=== PATIENT | female | born 1950 | race Caucasian/White ===

== ENCOUNTER 2018-10-24 07:20 | Inpatient (IN) | payer MEDICARE, MEDICAID ==
[2018-10-23 17:00] LABS: CLARITY,URINE CLOUDY (Clear); COLOR,URINE YELLOW (Yellow); GLUCOSE, URINE >=1000 mg/dl (Neg); KETONES,URINE NEGATIVE (Neg); LEUKOCYTE ESTERASE ,URINE TRACE (Neg); NITRITES, URINE NEGATIVE (Neg); OCCULT BLOOD,URINE SMALL (Neg); PH,URINE 5.5 (4.8-8.0); PROTEIN,URINE NEGATIVE (Neg); UROBILINOGEN,URINE 0.2 E.U/dL (0.2-1.0)
[2018-10-23 17:07] LABS: BASOPHILS # (AUTO) 0.1 X10'3 (0-0.2); BASOPHILS % (AUTO) 0.9 % (0-1); EOSINOPHILS # (AUTO) 0.2 X10'3 (0-0.9); EOSINOPHILS % (AUTO) 1.9 % (0-6); LYMPHOCYTES # (AUTO) 2.6 X10'3 (1.1-4.8); LYMPHOCYTES % (AUTO) 26.6 % (21-51); MEAN CORPUSCULAR HEMOGLOBIN 31.3 PG (27.0-31.0); MEAN CORPUSCULAR HGB CONC 34.8 g/dL (33.0-36.5); MEAN CORPUSCULAR VOLUME 90.1 FL (78-98); MEAN PLATELET VOLUME 10.3 FL (7.4-10.4); MONOCYTES # (AUTO) 0.8 X10'3 (0-0.9); MONOCYTES % (AUTO) 8.6 % (2-12); NEUTROPHILS # (AUTO) 6.2 X10'3 (1.8-7.7); PRE OP HEMATOCRIT 39.6 % (35.0-45.0); PRE OP HEMOGLOBIN 13.8 g/dL (12.0-16.0); PRE OP PLATELET COUNT 253 X10'3 (140-440); RED BLOOD COUNT 4.39 X10'6 (4.20-5.60); RED CELL DISTRIBUTION WIDTH 13.6 % (11.5-14.5)
[2018-10-23 17:10] LABS: UA COLLECTION TYPE CLN CATCH MIDSTREAM
[2018-10-23 17:11] LABS: SQUAMOUS EPITHELIAL CELL,UR FEW /LPF (FEW)
[2018-10-23 17:12] LABS: BACTERIA,URINE 4+ /HPF (Neg); RENAL CELLS, URINE FEW /HPF
[2018-10-23 17:16] LABS: ALBUMIN 3.1 G/DL (3.4-5.0); ALBUMIN/GLOBULIN RATIO 0.6 (1.1-1.5); ALKALINE PHOSPHATASE 181 IU/L (46-116); BLOOD UREA NITROGEN 22 MG/DL (7-18); BUN/CREATININE RATIO 16.5 (6.6-38.0); CHLORIDE 100 MMOL/L (99-107); CREATININE 1.33 MG/DL (0.40-0.90); PRE OP ALT 64 U/L (30-65); PRE OP ANION GAP 6 (8-16); PRE OP AST 30 U/L (10-37); PRE OP BILIRUB, TOTAL 0.2 MG/DL (0.0-1.0); PRE OP POTASSIUM 3.6 MMOL/L (3.4-5.1); PRE OP SODIUM 138 MMOL/L (135-145); TOTAL CARBON DIOXIDE 31.8 MMOL/L (24-32); TOTAL PROTEIN 7.9 G/DL (6.4-8.2); eGFR 40 ML/MIN
[2018-10-23 17:21] LABS: PRE OP GLUCOSE 357 MG/DL (70-104)
[2018-10-23 17:22] LABS: PRE OP INR 1.1 INR; PRE OP PROTIME 10.7 SECONDS (9.0-12.0)
[2018-10-23 17:39] LABS: HEMOGLOBIN A1C 10.1 % (4.5-6.2)
[2018-10-24] VITALS (12 sets, daily range): BP systolic 130–180; BP diastolic 45–81
[~2018-10-24] VITALS: Ht 157.5 cm; Wt 93.0 kg
[~2018-10-24 07:20] MED LIST: ALBU18HF2 INH; AMLO-314 PO; CBD OIL PO; CLOP75TA15 PO; FURO40TA4 PO; GABA-532 PO; INSU100V41 SQ; LINA5TAB4 PO; LISI10TA4 PO; METF-436 PO; MV-M1TAB55 PO; RIVA20TA PO; albuterol 2.5 MG/3 ML nebule NEB ONE; famotidine 20mg tablet PO ONE; ringers solution, lacted 1,000 ML IV SCH
--- NOTE | 2018-10-24 07:50 | NUR ---
Patient arrived as direct admit, patient of Dr. Curiel. VSS. No further needs at this time. To have angio around 0930 this am.
[2018-10-24] MEDS: ringers solution, lacted 1,000 ML IV SCH (07:55)
--- NOTE | 2018-10-24 08:04 | NUR ---
Spoke to Elissa in Angio they will hopefully be up around 0930 for scan
[2018-10-24] MEDS ORDERED: iohexol 300mg/ml 100ml inj. ONE ×2 (09:09→11:35)
[2018-10-24] MEDS ORDERED: LIDOcaine 1%/PF 5ML 10 MG/ML VIAL ONE (09:09)
[2018-10-24] MEDS ORDERED: normal saline 1000ml 1,000 ML IV SCH (09:19)
[2018-10-24] MEDS ORDERED: LIDOcaine 1%/PF 5ML 10 MG/ML VIAL SQ ONE (09:20)
[2018-10-24] MEDS ORDERED: fentaNYL/PF 50MCG/1 ML 2ML syringe IV PRN (09:20)
[2018-10-24] MEDS ORDERED: midazolam 2 mg/2 ml injection IV PRN (09:20)
--- NOTE | 2018-10-24 09:20 | NUR ---
Called Dr. Curiel regarding this patient's blood glucose of 347-hyperglycemic/hypoglycemic protocol ordered. Addressed this patient's wound on top of her L foot with Dr. Moisés MD states he would like to examine before giving further orders for dressing the wound.
[2018-10-24] MEDS ORDERED: glucagon, human recombinant 1mg kit SUBCUT PRN (09:25)
[2018-10-24] MEDS ORDERED: dextrose 50%-water 50ml dispensing syringe IV PRN ×2 (09:25)
[2018-10-24] MEDS ORDERED: dextrose ORAL solution 15 GM/59 ML bottle PO PRN ×2 (09:25)
[2018-10-24] MEDS ORDERED: MESSAGE TO PHARMACY PO ONE (09:25)
--- NOTE | 2018-10-24 09:32 | NUR ---
Patient just left via gurney for angiogram, all belongings sent with patient.
[2018-10-24] MEDS ORDERED: midazolam 2 mg/2 ml injection ONE (09:41)
[2018-10-24] MEDS ORDERED: heparin 1,000 UNITS/NS 500ml 500 ML ONE ×2 (09:41→11:35)
[2018-10-24] MEDS ORDERED: fentaNYL/PF 50MCG/1 ML 2ML syringe ONE (09:41)
[2018-10-24] MEDS ORDERED: heparin 1,000unit/ml 10ml vial 10 ML ONE (10:50)
[2018-10-24] MEDS ORDERED: hydrALAZINE 20mg/ml inj. IV ONE (11:25)
[2018-10-24] MEDS ORDERED: cefazolin/dext.iso 2gm/100 ML IV ONE (11:30)
--- NOTE | 2018-10-24 12:37 | NUR ---
Patient returned from angiogram/angioplasty, doppler pulses present on bilateral LE, patient reports minimal pain, VSS. Post op vitals started. Will continue to monitor.
[2018-10-24 12:52] LABS: BASOPHILS # (AUTO) 0.1 X10'3 (0-0.2); BASOPHILS % (AUTO) 0.7 % (0-1); EOSINOPHILS # (AUTO) 0.2 X10'3 (0-0.9); EOSINOPHILS % (AUTO) 2.1 % (0-6); HEMATOCRIT 37.8 % (35.0-45.0); HEMOGLOBIN 12.8 g/dl (12.0-16.0); LYMPHOCYTES # (AUTO) 3.6 X10'3 (1.1-4.8); LYMPHOCYTES % (AUTO) 35.4 % (21-51); MEAN CORPUSCULAR HEMOGLOBIN 30.5 PG (27.0-31.0); MEAN CORPUSCULAR HGB CONC 33.8 g/dL (33.0-36.5); MEAN CORPUSCULAR VOLUME 90.3 FL (78-98); MEAN PLATELET VOLUME 10.1 FL (7.4-10.4); MONOCYTES % (AUTO) 10.1 % (2-12); NEUTROPHILS # (AUTO) 5.2 X10'3 (1.8-7.7); NEUTROPHILS % (AUTO) 51.7 % (42-75); PLATELET COUNT 214 X10'3 (140-440); RED BLOOD COUNT 4.19 X10'6 (4.20-5.60); RED CELL DISTRIBUTION WIDTH 13.9 % (11.5-14.5); WHITE BLOOD COUNT 10.1 X10'3 (4.5-11.0)
[2018-10-24] MEDS: insulin Lispro (HumaLOG) vial - multi-dose SQ SCH ×3 (13:07→21:42)
[2018-10-24 13:08] LABS: ALBUMIN 2.6 G/DL (3.4-5.0); ANION GAP 6 (8-16); BLOOD UREA NITROGEN 22 MG/DL (7-18); BUN/CREATININE RATIO 23.9 (6.6-38.0); CALCIUM 8.9 MG/DL (8.5-10.1); CHLORIDE 104 MMOL/L (99-107); CREATININE 0.92 MG/DL (0.40-0.90); GLUCOSE 320 MG/DL (70-104); POTASSIUM 3.9 MMOL/L (3.5-5.1); SODIUM 138 MMOL/L (135-145); TOTAL CARBON DIOXIDE 28.3 MMOL/L (24-32); eGFR 61 ML/MIN
[2018-10-24 16:10] LABS: HEMOGLOBIN A1C 9.7 % (4.5-6.2)
--- NOTE | 2018-10-24 18:31 | NUR ---
Problems reprioritized. Patient report given, questions answered & plan of care reviewed with ALEIDA Anderson.
--- NOTE | 2018-10-24 18:33 | NUR ---
Patient in room [facility] 355. I have received report from RICHARD SHIN and had the opportunity to ask questions and assume patient care. Addendum: 10/24/18 at 1833 by Monica Goldsmith RN Amended: Links added.
[2018-10-24] MEDS ORDERED: MESSAGE TO NURSING PO NR (18:39)
[2018-10-24] MEDS ORDERED: albuterol 2.5 MG/3 ML nebule NEB PRN (18:40)
--- NOTE | 2018-10-24 19:35 | NUR ---
pt given 15 units of humalog for 75 carbs she ate and her blood sugar of 248.
[2018-10-24] MEDS ORDERED: amLODIPine 5mg tablet PO SCH (21:00)
[2018-10-24] MEDS ORDERED: insulin glargine (Lantus) pen - multi-dose SQ SCH (21:00)
[2018-10-24] MEDS ORDERED: INSULIN DEGLUDEC 30 UNIT SQ SCH (21:00)
[2018-10-24] MEDS ORDERED: clopidogrel 75mg tablet PO SCH (21:00)
--- NOTE | 2018-10-24 21:10 | NUR ---
pt AWOKE BLOOD SUGAR 327 AT AND COVERED AFTER CHECKING WITH ANOTHER RN 3 HUMALOG AND 12 OF LANTUS. ATTEMPT TO DO DIABETIC TEACHING PT NOT RECEPTIVE. NOTED PULSES DONE BY DOPPLER BILAT.
--- NOTE | 2018-10-24 23:05 | NUR ---
pt resting eyes closed without changes.
[2018-10-25 00:11] VITALS: BP 137/47
[2018-10-25] MEDS: gabapentin 300mg capsule PO SCH ×3 (00:35→13:15)
--- NOTE | 2018-10-25 00:46 | NUR ---
awoke briefly per request given snack of string cheese.
--- NOTE | 2018-10-25 02:25 | NUR ---
resting eyes closed without changes.
[2018-10-25] MEDS: ringers solution, lacted 1,000 ML IV SCH ×2 (03:55→04:36)
--- NOTE | 2018-10-25 04:21 | NUR ---
resting eyes closed without s&s of distress.
--- NOTE | 2018-10-25 06:17 | NUR ---
Problems reprioritized. Patient report given, questions answered & plan of care reviewed with Brian Jiemnez. Addendum: 10/25/18 at 0618 by Monica Goldsmith RN Amended: Links added.
[2018-10-25 08:00] VITALS: BP 145/48
[2018-10-25] MEDS ORDERED: furosemide 40mg tablet PO SCH (08:00)
[2018-10-25] MEDS ORDERED: linagliptin 5mg tablet PO SCH (08:00)
[2018-10-25] MEDS ORDERED: multivitamins, therapeutics tablet PO SCH (08:00)
[2018-10-25] MEDS ORDERED: CBD OIL PO SCH (08:00)
[2018-10-25] MEDS ORDERED: rivaroxaban 20mg tablet PO SCH (08:00)
[2018-10-25] MEDS ORDERED: lisinopril 20mg tablet PO SCH (08:00)
[2018-10-25] MEDS: insulin Lispro (HumaLOG) vial - multi-dose SQ SCH ×2 (08:37→13:18)
[2018-10-25 12:00] VITALS: BP 146/59
--- NOTE | 2018-10-25 15:50 | NUR ---
DM Consult: A1C 9.7. Pt admit w/ PVD hx T2DM non-compliant w/ L foot non-healing wound and ischemia per MD note. Receiving MVI for wound healing. Pt PO 100% carb controlled meals meeting needs. LBM 10/23. GLU down to 202 from 347 on admit. Pt seen by RD for written/verbal DM ed w/ RD contact information provided. Pt reports recently starting insulin and was only on metformin in past for GLU control but also admits to inappropriate diet choices specifically frequent sweets instead of moderation. RD encouraged pt to attend CDE course, check GLU BIDBD instead of QD at breakfast as well as seeing an webbing inspector for further DM care. Will continue to monitor. Rec: 1. continue carb controlled diet 2. MVI for wound 3. wt per rx Addendum: 10/25/18 at [address] Amended: Links added.
[2018-10-26] MEDS ORDERED: metFORMIN 500mg tablet PO SCH (13:00)
== END 2018-10-25 17:17 | disposition home or self-care (01) | DRG 254 ==
LOC: SUR 3N 07:20 → EDSTATUS 13:45
PROVIDERS: ADMIT Surgery; ATTEND Surgery
PROC: 047K3ZZ Dilation of Right Femoral Artery, Percutaneous Approach (ICD-10-PCS; principal; 2018-10-24)
PROC: 047L3ZZ Dilation of Left Femoral Artery, Percutaneous Approach (ICD-10-PCS; 2018-10-24)
PROC: 047D3ZZ Dilation of Left Common Iliac Artery, Percutaneous Approach (ICD-10-PCS; 2018-10-24)
PROC: 047H3ZZ Dilation of Right External Iliac Artery, Percutaneous Approach (ICD-10-PCS; 2018-10-24)
DX: I70.303 Unspecified atherosclerosis of unspecified type of bypass graft(s) of the extremities, bilateral legs (principal); E11.9 Type 2 diabetes mellitus without complications; Z88.2 Allergy status to sulfonamides; Z79.84 Long term (current) use of oral hypoglycemic drugs; Z79.899 Other long term (current) drug therapy; Z86.19 Personal history of other infectious and parasitic diseases
CPT/HCPCS: 36415; 37222; 37224; 71045; 71046; 76942; 80048; 80053; 81001; 82948; 83036; 85025; 85347; 85610; 85730; 86885; 86900; 86901; 87070; 87077; 87088; 87186; 93005; 99152; 99153; C1725; C1769; C1894; G0378; J0360; J0690; J1644; J1815; J2001; J2250; J3010; J7030; J7120; Q9967

== ENCOUNTER 2019-01-13 11:44 | Observation (INO) | payer MEDICARE, MEDICAID ==
[~2019-01-13] VITALS: Ht 170.2 cm; Wt 97.0 kg
[2019-01-13] VITALS (9 sets, daily range): BP systolic 102–168; BP diastolic 39–75
[~2019-01-13 11:44] MED LIST changes: -albuterol 2.5 MG/3 ML nebule NEB ONE; -famotidine 20mg tablet PO ONE; -ringers solution, lacted 1,000 ML IV SCH
[2019-01-13] MEDS ORDERED: normal saline 1000ml 1,000 ML IV PRN (12:05)
[2019-01-13 12:40] LABS: BASOPHILS # (AUTO) 0.1 X10'3 (0-0.2); BASOPHILS % (AUTO) 0.9 % (0-1); EOSINOPHILS # (AUTO) 0.4 X10'3 (0-0.9); EOSINOPHILS % (AUTO) 4.1 % (0-6); HEMATOCRIT 40.2 % (35.0-45.0); HEMOGLOBIN 13.8 g/dl (12.0-16.0); LYMPHOCYTES # (AUTO) 2.9 X10'3 (1.1-4.8); LYMPHOCYTES % (AUTO) 29.9 % (21-51); MEAN CORPUSCULAR HGB CONC 34.2 g/dL (33.0-36.5); MEAN CORPUSCULAR VOLUME 90.8 FL (78-98); MEAN PLATELET VOLUME 10.2 FL (7.4-10.4); MONOCYTES % (AUTO) 10.6 % (2-12); NEUTROPHILS # (AUTO) 5.3 X10'3 (1.8-7.7); NEUTROPHILS % (AUTO) 54.5 % (42-75); PLATELET COUNT 253 X10'3 (140-440); RED BLOOD COUNT 4.43 X10'6 (4.20-5.60); RED CELL DISTRIBUTION WIDTH 13.7 % (11.5-14.5); WHITE BLOOD COUNT 9.7 X10'3 (4.5-11.0)
[2019-01-13 12:50] LABS: ALBUMIN 3.5 G/DL (3.4-5.0); ANION GAP 10 (8-16); BLOOD UREA NITROGEN 62 MG/DL (7-18); BUN/CREATININE RATIO 36.9 (6.6-38.0); CALCIUM 9.3 MG/DL (8.5-10.1); CHLORIDE 100 MMOL/L (99-107); CREATININE 1.68 MG/DL (0.40-0.90); GLUCOSE 268 MG/DL (70-104); POTASSIUM 4.9 MMOL/L (3.5-5.1); SODIUM 138 MMOL/L (135-145); TOTAL CARBON DIOXIDE 28.2 MMOL/L (24-32); eGFR 30 ML/MIN
[2019-01-13 12:55] LABS: PARTIAL THROMBOPLASTIN TIME 26 SECONDS (22-32)
[2019-01-13] MEDS ORDERED: LIDOcaine 1%/PF 5ML 10 MG/ML VIAL ONE (15:53)
[2019-01-13] MEDS ORDERED: iohexol 300mg/ml 100ml inj. ONE (15:53)
[2019-01-13] MEDS ORDERED: fentaNYL/PF 50MCG/1 ML 2ML syringe ONE ×2 (16:02→16:48)
[2019-01-13] MEDS ORDERED: heparin 1,000 UNITS/NS 500ml 500 ML ONE (16:02)
[2019-01-13] MEDS ORDERED: midazolam 2 mg/2 ml injection ONE ×2 (16:02→16:47)
--- NOTE | 2019-01-13 18:40 | NUR ---
Received report from ALEIDA Bowers in Short Stay. Reports that patient is alert and oriented and in a stable condition. She reports that vitals are stable. During Lower extremity angiogram, Left groin approach patient received angioplasty to Left internal iliac. No stents placed. Reports that patient received 4 of Versed and 200 of Fentanyl and no contrast was used only CO2 due to high creatinine level. Reports to use doppler for peripheral pulses and gave patient's history of PVD. Patient had an angioplasty last week with a left groin approach and a stent was place to the Right iliac. Reports that the patient has bruising left over from the last procedure. Patient had a FEM-POP bypass sometime recently which failed. Dr. Haro used Minx closure and patient to be flat for 4 hours. Reports this procedure done emergently and pt was still on anticoagulant therapy and to observe for bleeding and for signs of retroperitoneal bleed. Will await pt arrival to the ACCE unit.
--- NOTE | 2019-01-13 18:50 | NUR ---
Patient arrives on the ACCE unit. Patient is sleeping but easy to arouse. She is on a gurney and transferred to bed in room. Vitals taken, groin checked along with peripheral pulses using a doppler. Patient belongings came with patient. Assessment completed and assumed care of patient.
[2019-01-13] MEDS ORDERED: albuterol 2.5 MG/3 ML nebule NEB PRN (19:20)
[2019-01-13] MEDS: normal saline 1000ml 1,000 ML IV SCH ×2 (19:24→23:27)
[2019-01-13] MEDS ORDERED: glucagon, human recombinant 1mg kit SUBCUT PRN (20:45)
[2019-01-13] MEDS ORDERED: insulin Lispro (HumaLOG) vial - multi-dose SQ SCH (20:45)
[2019-01-13] MEDS ORDERED: dextrose ORAL solution 15 GM/59 ML bottle PO PRN ×2 (20:45)
[2019-01-13] MEDS ORDERED: dextrose 50%-water 50ml dispensing syringe IV PRN ×2 (20:45)
[2019-01-13] MEDS ORDERED: amLODIPine 5mg tablet PO SCH (21:00)
[2019-01-13] MEDS ORDERED: insulin glargine (Lantus) pen - multi-dose SQ SCH (21:00)
[2019-01-13] MEDS ORDERED: TRESIBA 30 UNIT SQ SCH (21:00)
[2019-01-13] MEDS ORDERED: clopidogrel 75mg tablet PO SCH (21:00)
[2019-01-13 21:19] LABS: HEMOGLOBIN A1C 10.9 % (4.5-6.2)
[2019-01-13] MEDS: gabapentin 300mg capsule PO SCH (21:35)
[2019-01-13] MEDS ORDERED: HYDROcodone/acetaminophen 5mg/325mg tablet PO PRN (21:50)
[2019-01-14 02:00] VITALS: BP 140/44
[2019-01-14 06:00] VITALS: BP 107/70
--- NOTE | 2019-01-14 06:27 | NUR ---
Problems reprioritized. Patient report given, questions answered & plan of care reviewed with Art, RN.
[2019-01-14] MEDS ORDERED: metFORMIN 500mg tablet PO SCH (07:00)
[2019-01-14] MEDS ORDERED: rivaroxaban 20mg tablet PO SCH (07:30)
[2019-01-14 07:44] VITALS: BP_SYST 138
[2019-01-14] MEDS: gabapentin 300mg capsule PO SCH (07:44)
[2019-01-14] MEDS ORDERED: linagliptin 5mg tablet PO SCH (08:00)
[2019-01-14] MEDS ORDERED: lisinopril 20mg tablet PO SCH (08:00)
[2019-01-14] MEDS ORDERED: furosemide 40mg tablet PO SCH (08:00)
--- NOTE | 2019-01-14 11:32 | NUR ---
Orientee documentation: I have reviewed and agree with all interventions, assessments performed and documented by ALEIDA Anderson.
== END 2019-01-14 10:33 | disposition home or self-care (01) ==
LOC: SSTAY O 11:44 → MED 3N 19:30
PROVIDERS: ADMIT Radiology Vascular & Interventional Radiology; ATTEND Radiology Vascular & Interventional Radiology
DX: I73.9 Peripheral vascular disease, unspecified (principal); F17.210 Nicotine dependence, cigarettes, uncomplicated; Z88.1 Allergy status to other antibiotic agents
CPT/HCPCS: 36415; 37220; 80048; 82948; 83036; 85025; 85730; 87081; 96372; C1725; C1760; C1769; C1887; C1894; G0378; J1644; J1815; J2250; J3010; J7030; Q9967; 99152; 99153; A6213

== ENCOUNTER 2019-08-06 13:28 | Inpatient (IN) | payer MEDICARE, MEDICAID ==
[~2019-08-06] VITALS: Ht 170.2 cm; Wt 87.4 kg
[~2019-08-06 13:28] MED LIST changes: -MV-M1TAB55 PO
[2019-08-06 16:06] LABS: BASOPHILS # (AUTO) 0.1 X10'3 (0-0.2); BASOPHILS % (AUTO) 0.8 % (0-1); EOSINOPHILS # (AUTO) 0.3 X10'3 (0-0.9); EOSINOPHILS % (AUTO) 2.4 % (0-6); HEMATOCRIT 29.7 % (35.0-45.0); HEMOGLOBIN 9.3 g/dl (12.0-16.0); LYMPHOCYTES # (AUTO) 2.2 X10'3 (1.1-4.8); LYMPHOCYTES % (AUTO) 19.3 % (21-51); MEAN CORPUSCULAR HGB CONC 31.3 g/dL (33.0-36.5); MEAN CORPUSCULAR VOLUME 79.9 FL (78-98); MEAN PLATELET VOLUME 8.8 FL (7.4-10.4); MONOCYTES # (AUTO) 1.1 X10'3 (0-0.9); MONOCYTES % (AUTO) 9.3 % (2-12); NEUTROPHILS # (AUTO) 7.8 X10'3 (1.8-7.7); NEUTROPHILS % (AUTO) 68.2 % (42-75); PLATELET COUNT 460 X10'3 (140-440); RED BLOOD COUNT 3.72 X10'6 (4.20-5.60); RED CELL DISTRIBUTION WIDTH 16.2 % (11.5-14.5); WHITE BLOOD COUNT 11.5 X10'3 (4.5-11.0)
[2019-08-06 16:15] LABS: PARTIAL THROMBOPLASTIN TIME 31 SECONDS (22-32)
[2019-08-06 16:18] LABS: ALANINE AMINOTRANSFERASE 19 U/L (12-78); ALBUMIN 2.7 G/DL (3.4-5.0); ALBUMIN/GLOBULIN RATIO 0.6 (1.1-1.5); ALKALINE PHOSPHATASE 123 IU/L (46-116); ANION GAP 8 (8-16); ASPARTATE AMINO TRANSFERASE 17 U/L (10-37); BILIRUBIN,TOTAL 0.3 MG/DL (0.1-1.0); BLOOD UREA NITROGEN 31 MG/DL (7-18); CALCIUM 9.4 MG/DL (8.5-10.1); CHLORIDE 106 MMOL/L (99-107); CREATININE 1.72 MG/DL (0.40-0.90); ETHANOL < 0.010 GM/DL (0.0-0.010); GLUCOSE 161 MG/DL (70-104); POTASSIUM 5.1 MMOL/L (3.5-5.1); SODIUM 142 MMOL/L (135-145); TOTAL CARBON DIOXIDE 27.7 MMOL/L (24-32); TOTAL PROTEIN 7.3 G/DL (6.4-8.2); eGFR 29 ML/MIN
[2019-08-06] MEDS ORDERED: normal saline 1000ml 1,000 ML IV ONE ×2 (16:25)
[2019-08-06] MEDS ORDERED: piperacillin/tazo 3.375gm/50ml 50 ML IV ONE (16:45)
[2019-08-06 16:52] LABS: CLARITY,URINE CLOUDY (Clear); COLOR,URINE YELLOW (Yellow); GLUCOSE, URINE NEGATIVE (Neg); KETONES,URINE NEGATIVE (Neg); LEUKOCYTE ESTERASE ,URINE LARGE (Neg); NITRITES, URINE POSITIVE (Neg); OCCULT BLOOD,URINE MODERATE (Neg); PH,URINE 5.5 (4.8-8.0); PROTEIN,URINE 30 mg/dl (Neg); UROBILINOGEN,URINE 0.2 E.U/dL (0.2-1.0)
[2019-08-06 16:55] LABS: URINE AMPHETAMINE SCREEN POSITIVE (Neg); URINE BARBITUATE SCREEN NEGATIVE (Neg); URINE BENZODIAZEPINES SCREEN POSITIVE (Neg); URINE CANNABINOID SCREEN NEGATIVE (Neg); URINE COCAINE SCREEN NEGATIVE (Neg); URINE METHADONE SCREEN NEGATIVE (Neg); URINE OPIATE SCREEN POSITIVE (Neg); URINE PHENCYCLIDINE SCREEN NEGATIVE (Neg)
[2019-08-06 16:58] LABS: UA COLLECTION TYPE STRAIGHT CATH
[2019-08-06 16:59] LABS: WBC,URINE TNTC /HPF (0-4)
[2019-08-06 17:00] LABS: BACTERIA,URINE 4+ /HPF (Neg); MUCUS STRANDS NONE SEEN /LPF (Neg); SQUAMOUS EPITHELIAL CELL,UR FEW /LPF (FEW)
[2019-08-06] MEDS ORDERED: CefTRIAXone 2gm/D5W 50ml 50 ML IV ONE (17:05)
[2019-08-06] MEDS ORDERED: pantoprazole IV 80 MG in normal saline 100ml IV soln 100 ML IV ONE (17:30)
[2019-08-06] MEDS ORDERED: pantoprazole IV 40 MG in normal saline 100ml IV soln 100 ML IV ONE (17:50)
[2019-08-06] MEDS ORDERED: normal saline 1000ml 1,000 ML IV SCH (19:14)
[2019-08-06] MEDS ORDERED: magnesium 2GM in 50ml NS 50 ML IV PRN (19:15)
[2019-08-06] MEDS ORDERED: potassium CL 10mEq/100ml bag 100 ML IV PRN ×2 (19:15)
[2019-08-06] MEDS ORDERED: magnesium hydroxide 30ml (MOM) UD suspension PO PRN (19:15)
[2019-08-06] MEDS ORDERED: mag hydrox/Alum hydrox/simeth 30ml oral suspension PO PRN (19:15)
[2019-08-06] MEDS ORDERED: magnesium 4gm in 100ml NS 100 ML IV PRN (19:15)
[2019-08-06] MEDS ORDERED: ondansetron/PF 4mg/2ml inj IV PRN (19:15)
[2019-08-06] MEDS ORDERED: acetaminophen 325mg tablet PO PRN (19:15)
[2019-08-06] MEDS ORDERED: dextrose 50%-water 50ml dispensing syringe IV PRN (19:20)
[2019-08-06] MEDS ORDERED: glucagon, human recombinant 1mg kit SUBCUT PRN (19:20)
[2019-08-06] MEDS ORDERED: MESSAGE TO PHARMACY PO ONE (19:20)
[2019-08-06] MEDS ORDERED: insulin Lispro (HumaLOG) vial - multi-dose SQ SCH (19:20)
[2019-08-06] MEDS ORDERED: dextrose ORAL solution 15 GM/59 ML bottle PO PRN ×2 (19:20)
[2019-08-06 19:43] LABS: HEMOGLOBIN A1C 13.7 % (4.5-6.2)
[2019-08-06] MEDS: K and/or MAG REPLACEMENT MC SCH (20:00)
[2019-08-06] MEDS: dextrose 50%-water 50ml dispensing syringe IV PRN (21:05)
--- NOTE | 2019-08-06 21:15 | NUR ---
Patient in room PCU 3027. I have received report from ALEIDA Mena in ER and had the opportunity to ask questions and assume patient care.
[2019-08-06 21:33] VITALS: BP 136/53
--- NOTE | 2019-08-06 21:58 | NUR ---
Arrived to [facility] 3027A @2133 and transferred from [facility] to [facility]. A&Ox3, patient asking why she's in the hospital. Vital signs 95.9F, HR 90, BP 136/53, RR 21 and SpO2 on 93% on 3L NC. Patient is crying with complaints of achy pain located in the affected left leg. Denies pain anywhere else. Blood sugar is 91 now from blood sugar of 66 in the ER. Will continue to monitor closely.
[2019-08-06 22:00] VITALS: BP 114/49
--- NOTE | 2019-08-06 23:53 | NUR ---
Unable to DART at this time. Tried to wake her up several times because mental status is improving from the ER, but patient is fatigued and refusing. Patient says "STOP, go away." I will pass it on to day shift.
[2019-08-07 02:00] VITALS: BP 98/68
[2019-08-07] MEDS: dextrose 50%-water 50ml dispensing syringe IV PRN ×3 (02:05→07:26)
--- NOTE | 2019-08-07 02:28 | NUR ---
Low blood sugar of 56 @0200 and NPO. Patient had low BS of 66 as well at 2100. MD was called and notified. New orders were given from MD for D5NS@100ml/hr.
[2019-08-07] MEDS: dextrose 5%-normal saline 1,000 ML IV SCH ×3 (02:36→22:35)
--- NOTE | 2019-08-07 06:00 | NUR ---
Patient in room PCU 3027. I have received report from Archana SHIN and had the opportunity to ask questions and assume patient care.
--- NOTE | 2019-08-07 06:00 | NUR ---
Patient in room PCU 3027. I have received report from Archana SHIN and had the opportunity to ask questions and assume patient care.
[2019-08-07 06:30] LABS: EOSINOPHILS # (AUTO) 0.3 X10'3 (0-0.9); WHITE BLOOD COUNT 8.8 X10'3 (4.5-11.0)
[2019-08-07 06:34] LABS: BASOPHILS # (AUTO) 0.1 X10'3 (0-0.2); BASOPHILS % (AUTO) 1.5 % (0-1); EOSINOPHILS % (AUTO) 3.9 % (0-6); HEMATOCRIT 30.4 % (35.0-45.0); HEMOGLOBIN 9.8 g/dl (12.0-16.0); LYMPHOCYTES # (AUTO) 2.3 X10'3 (1.1-4.8); LYMPHOCYTES % (AUTO) 26.4 % (21-51); MEAN CORPUSCULAR HEMOGLOBIN 26.1 PG (27.0-31.0); MEAN CORPUSCULAR HGB CONC 32.4 g/dL (33.0-36.5); MEAN CORPUSCULAR VOLUME 80.5 FL (78-98); MEAN PLATELET VOLUME 8.7 FL (7.4-10.4); MONOCYTES % (AUTO) 11.4 % (2-12); NEUTROPHILS % (AUTO) 56.8 % (42-75); PLATELET COUNT 394 X10'3 (140-440); RED BLOOD COUNT 3.77 X10'6 (4.20-5.60); RED CELL DISTRIBUTION WIDTH 15.7 % (11.5-14.5)
--- NOTE | 2019-08-07 06:35 | NUR ---
Problems reprioritized. Patient report given, questions answered & plan of care reviewed with ALEIDA Marina.
[2019-08-07 06:39] LABS: ALANINE AMINOTRANSFERASE 16 U/L (12-78); ALBUMIN 2.4 G/DL (3.4-5.0); ALBUMIN/GLOBULIN RATIO 0.6 (1.1-1.5); ALKALINE PHOSPHATASE 118 IU/L (46-116); ASPARTATE AMINO TRANSFERASE 19 U/L (10-37); BILIRUBIN,TOTAL 0.2 MG/DL (0.1-1.0); BLOOD UREA NITROGEN 25 MG/DL (7-18); BUN/CREATININE RATIO 18.9 (6.6-38.0); CALCIUM 8.5 MG/DL (8.5-10.1); CREATININE 1.32 MG/DL (0.40-0.90); GLUCOSE 85 MG/DL (70-104); MAGNESIUM 1.7 MG/DL (1.5-2.4); TOTAL PROTEIN 6.7 G/DL (6.4-8.2); eGFR 40 ML/MIN
[2019-08-07 06:52] LABS: ANION GAP 9 (8-16); CHLORIDE 110 MMOL/L (99-107); POTASSIUM 4.1 MMOL/L (3.5-5.1); SODIUM 143 MMOL/L (135-145)
--- NOTE | 2019-08-07 07:00 | NUR ---
LOW BS RN notified and correcting BS now.
--- NOTE | 2019-08-07 07:32 | NUR ---
Patient with low BS@ 49. Given D50 IV push 25ml x1; rechecked BS with result @ 38. Given D50 IV push 50ml x1. Will continue to monitor.
[2019-08-07] MEDS: CefTRIAXone/D5W-Rocephin 1gm 50 ML IV SCH (08:00)
[2019-08-07] MEDS: K and/or MAG REPLACEMENT MC SCH ×2 (08:00→20:00)
--- NOTE | 2019-08-07 10:13 | NUR ---
Pt with T2DM with A1c 13.7. Pt admit with laceration to left anterior leg that occurred s/p fall as well as GIB and ALOC. Wound care has been consulted for further skin assessment. Pt with tox screen that was positive for benzodiazepines, amphetamines, and opiates. Pt currently documented as A/O x 3. Pt would benefit from DM education once stable. Per hx patient's A1c is up from 10.9 in January 2019. Pt with low blood sugars since admit despite not being given insulin. Pt receiving PRN dextrose as well as D5NS at 100 mL/hr. Will continue to follow closely. Recommendations: 1) Advance to CHO controlled diet as medically indicated 2) Monitor need for ONS/additional protein with diet advancement 3) DM education once stable 4) Bowel care PRN 5) Wt per rx Addendum: 08/07/19 at [address] Amended: Links added.
[2019-08-07 11:00] VITALS: BP 136/38
--- NOTE | 2019-08-07 16:12 | NUR ---
Patient refused 1500 vitals.
--- NOTE | 2019-08-07 18:30 | NUR ---
Patient in room PCU 3027. I have received report from Laina SHIN and had the opportunity to ask questions and assume patient care.
--- NOTE | 2019-08-07 18:42 | NUR ---
Problems reprioritized. Patient report given, questions answered & plan of care reviewed with Riley RN.
[2019-08-07 19:00] VITALS: BP 147/53
[2019-08-07] MEDS ORDERED: insulin glargine (Lantus) pen - multi-dose SQ PRN (21:00)
--- NOTE | 2019-08-07 22:00 | NUR ---
Discussed with Dr. Montano pt episodes of hyper/hypoglycemia throughout the day. Dr. Montano ordered me to not give any insulin and to change the dextrose gtt to 70ml/hr. Will continue to monitor.
[2019-08-07 23:00] VITALS: BP 116/47
[2019-08-08] MEDS: albuterol 2.5 MG/3 ML nebule NEB SCH ×2 (00:15→04:00)
[2019-08-08 03:00] VITALS: BP 117/55
[2019-08-08 06:00] VITALS: BP 139/89
--- NOTE | 2019-08-08 06:16 | NUR ---
Patient in room PCU 3027. I have received report from Riley SHIN and had the opportunity to ask questions and assume patient care.
--- NOTE | 2019-08-08 06:28 | NUR ---
Problems reprioritized. Patient report given, questions answered & plan of care reviewed with ISHMAEL SHIN.
[2019-08-08] MEDS: K and/or MAG REPLACEMENT MC SCH ×2 (07:05→20:00)
[2019-08-08 07:24] LABS: BASOPHILS # (AUTO) 0.1 X10'3 (0-0.2); BASOPHILS % (AUTO) 1.2 % (0-1); EOSINOPHILS # (AUTO) 0.3 X10'3 (0-0.9); EOSINOPHILS % (AUTO) 4.7 % (0-6); HEMOGLOBIN 8.2 g/dl (12.0-16.0); MEAN CORPUSCULAR HEMOGLOBIN 25.2 PG (27.0-31.0); MEAN CORPUSCULAR HGB CONC 31.5 g/dL (33.0-36.5); MEAN CORPUSCULAR VOLUME 79.8 FL (78-98); MEAN PLATELET VOLUME 8.8 FL (7.4-10.4); MONOCYTES # (AUTO) 0.8 X10'3 (0-0.9); MONOCYTES % (AUTO) 12.3 % (2-12); NEUTROPHILS # (AUTO) 3.5 X10'3 (1.8-7.7); NEUTROPHILS % (AUTO) 51.8 % (42-75); PLATELET COUNT 409 X10'3 (140-440); RED BLOOD COUNT 3.26 X10'6 (4.20-5.60); WHITE BLOOD COUNT 6.8 X10'3 (4.5-11.0)
[2019-08-08 07:35] LABS: ALANINE AMINOTRANSFERASE 15 U/L (12-78); ALBUMIN/GLOBULIN RATIO 0.5 (1.1-1.5); ALKALINE PHOSPHATASE 107 IU/L (46-116); ANION GAP 6 (8-16); ASPARTATE AMINO TRANSFERASE 15 U/L (10-37); BILIRUBIN,TOTAL 0.1 MG/DL (0.1-1.0); BLOOD UREA NITROGEN 14 MG/DL (7-18); BUN/CREATININE RATIO 9.7 (6.6-38.0); CALCIUM 8.4 MG/DL (8.5-10.1); CHLORIDE 111 MMOL/L (99-107); CREATININE 1.45 MG/DL (0.40-0.90); GLUCOSE 210 MG/DL (70-104); MAGNESIUM 1.3 MG/DL (1.5-2.4); POTASSIUM 4.1 MMOL/L (3.5-5.1); SODIUM 145 MMOL/L (135-145); TOTAL CARBON DIOXIDE 27.7 MMOL/L (24-32); eGFR 36 ML/MIN
[2019-08-08] MEDS: furosemide 40mg tablet PO SCH (08:31)
[2019-08-08] MEDS: gabapentin 300mg capsule PO SCH ×4 (08:31→20:35)
[2019-08-08] MEDS: lisinopril 10 MG tablet PO SCH (08:32)
[2019-08-08] MEDS: rivaroxaban 20mg tablet PO SCH (08:32)
[2019-08-08] MEDS: CefTRIAXone/D5W-Rocephin 1gm 50 ML IV SCH (08:34)
[2019-08-08 11:00] VITALS: BP 149/55
--- NOTE | 2019-08-08 15:02 | NUR ---
Nutrition consult: Per wound care notes pt with full thick open vascular wound to left dorsal foot and partial thickness wound to left lower leg. Patient's diet has been advanced to CHO controlled and pt documented with 50% PO intake at dinner last night up to 75-100% PO intake at breakfast this morning. Pt seen at bedside. Pt states she sees her PCP for DM management with her most recent appointment being last month. Pt states she takes her DM medications per rx which pt reports is long and short acting insulin. Pt states she checks her BG levels three times a day with resulting numbers on average in the 200s, however current A1c suggests average BG level of 346. Pt informed of increase in A1c. Pt states she believes it is because she started drinking a large amount of Pepsi. RD encouraged pt to decrease soda intake and increase DM management as her A1c is on an upward trend. Pt verbalized understanding however nonchalant about elevated A1c. Pt provided with written and verbal protein and DM educations with referral to outpatient CDE course and RD contact information. Pt endorses a good appetite and states she is getting full from meals. Pt reports UBW 210 lbs and denies wt loss. Pt with wt hx of 213 lbs taken 01/13/19 with standing scale, current bed scaled wt is 192 lbs, this is non-severe wt loss of 10% in seven months. Pt with no visible fat/muscle wasting or edema. Pt does not meet criteria for malnutrition at this time. Pt denies food allergies, difficulty chewing/swallowing, or constipation/diarrhea. Will continue to follow. Addendum: 08/08/19 at [address] Amended: Links added.
--- NOTE | 2019-08-08 18:30 | NUR ---
Patient in room PCU 3027. I have received report from Yoana SHIN and had the opportunity to ask questions and assume patient care.
[2019-08-08 19:00] VITALS: BP 145/76
[2019-08-08] MEDS: magnesium Cl slow-release 64mg tablet PO PRN (20:33)
[2019-08-08] MEDS ORDERED: clopidogrel 75mg tablet PO SCH (21:00)
[2019-08-08] MEDS ORDERED: amLODIPine 5mg tablet PO SCH (21:00)
[2019-08-08 23:00] VITALS: BP 120/62
--- NOTE | 2019-08-09 02:59 | NUR ---
Discussed with Dr. Montano via telephone pt episode of HTN 177 SBP - 184 SBP on recheck. Answered all doctors questions about pt medication, past blood pressures and history. Doctor Charmaine provided no new orders at this time. Will continue to monitor.
[2019-08-09 03:00] VITALS: BP 129/68
[2019-08-09 06:00] VITALS: BP 110/74
--- NOTE | 2019-08-09 06:12 | NUR ---
Problems reprioritized. Patient report given, questions answered & plan of care reviewed with Antonieta RN.
[2019-08-09 06:21] LABS: BASOPHILS # (AUTO) 0.1 X10'3 (0-0.2); BASOPHILS % (AUTO) 1.5 % (0-1); EOSINOPHILS # (AUTO) 0.3 X10'3 (0-0.9); EOSINOPHILS % (AUTO) 3.8 % (0-6); HEMATOCRIT 29.3 % (35.0-45.0); HEMOGLOBIN 9.4 g/dl (12.0-16.0); LYMPHOCYTES # (AUTO) 2.7 X10'3 (1.1-4.8); MEAN CORPUSCULAR HEMOGLOBIN 25.6 PG (27.0-31.0); MEAN CORPUSCULAR HGB CONC 32.2 g/dL (33.0-36.5); MEAN CORPUSCULAR VOLUME 79.7 FL (78-98); MEAN PLATELET VOLUME 8.7 FL (7.4-10.4); MONOCYTES # (AUTO) 0.8 X10'3 (0-0.9); MONOCYTES % (AUTO) 10.2 % (2-12); NEUTROPHILS # (AUTO) 4.2 X10'3 (1.8-7.7); NEUTROPHILS % (AUTO) 51.5 % (42-75); PLATELET COUNT 391 X10'3 (140-440); RED BLOOD COUNT 3.68 X10'6 (4.20-5.60); WHITE BLOOD COUNT 8.2 X10'3 (4.5-11.0)
--- NOTE | 2019-08-09 06:39 | NUR ---
Patient in room PCU 3027. I have received report from ALEIDA Lin and had the opportunity to ask questions and assume patient care.
[2019-08-09 07:06] LABS: ALANINE AMINOTRANSFERASE 16 U/L (12-78); ALBUMIN 2.2 G/DL (3.4-5.0); ALBUMIN/GLOBULIN RATIO 0.5 (1.1-1.5); ALKALINE PHOSPHATASE 113 IU/L (46-116); ANION GAP 7 (8-16); ASPARTATE AMINO TRANSFERASE 15 U/L (10-37); BILIRUBIN,TOTAL 0.2 MG/DL (0.1-1.0); BLOOD UREA NITROGEN 15 MG/DL (7-18); BUN/CREATININE RATIO 13.8 (6.6-38.0); CALCIUM 8.6 MG/DL (8.5-10.1); CHLORIDE 107 MMOL/L (99-107); CREATININE 1.09 MG/DL (0.40-0.90); GLUCOSE 178 MG/DL (70-104); MAGNESIUM 1.2 MG/DL (1.5-2.4); POTASSIUM 4.1 MMOL/L (3.5-5.1); SODIUM 142 MMOL/L (135-145); TOTAL CARBON DIOXIDE 28.4 MMOL/L (24-32); TOTAL PROTEIN 6.5 G/DL (6.4-8.2); eGFR 50 ML/MIN
[2019-08-09] MEDS: lisinopril 10 MG tablet PO SCH (08:23)
[2019-08-09] MEDS: furosemide 40mg tablet PO SCH (08:23)
[2019-08-09] MEDS: gabapentin 300mg capsule PO SCH (08:23)
[2019-08-09] MEDS: rivaroxaban 20mg tablet PO SCH (08:23)
[2019-08-09] MEDS: CefTRIAXone/D5W-Rocephin 1gm 50 ML IV SCH (08:23)
[2019-08-09] MEDS: magnesium Cl slow-release 64mg tablet PO PRN (08:28)
[2019-08-09] MEDS: K and/or MAG REPLACEMENT MC SCH (08:38)
[2019-08-09] MEDS ORDERED: CEPH500C5 PO (10:18)
[2019-08-09 11:00] VITALS: BP 112/49
--- NOTE | 2019-08-09 13:40 | NUR ---
pt discharged. IV d/c'd, tele removed, no belongings to be sent home (clothes being worn). wheeled down by hospital staff. left in private vehicle.
[2019-08-13 15:01] LABS: OCCULT BLOOD STOOL POSITIVE (Neg)
== END 2019-08-09 12:37 | disposition home health service (06) | DRG 604 ==
LOC: ER 13:29 → ED HOLD 19:14 → PCU 3S 21:35
PROVIDERS: ADMIT Internal Medicine; ATTEND Family Medicine
PROC: 0HQLXZZ Repair Left Lower Leg Skin, External Approach (ICD-10-PCS; principal; 2019-08-06)
DX: S81.812A Laceration without foreign body, left lower leg, initial encounter (principal); G92 Toxic encephalopathy; N39.0 Urinary tract infection, site not specified; K92.2 Gastrointestinal hemorrhage, unspecified; D64.9 Anemia, unspecified; E11.22 Type 2 diabetes mellitus with diabetic chronic kidney disease; E11.51 Type 2 diabetes mellitus with diabetic peripheral angiopathy without gangrene; E11.621 Type 2 diabetes mellitus with foot ulcer; E11.65 Type 2 diabetes mellitus with hyperglycemia; F15.10 Other stimulant abuse, uncomplicated; E11.42 Type 2 diabetes mellitus with diabetic polyneuropathy; W01.0XXA Fall on same level from slipping, tripping and stumbling without subsequent striking against object, initial encounter; I12.9 Hypertensive chronic kidney disease with stage 1 through stage 4 chronic kidney disease, or unspecified chronic kidney disease; B96.20 Unspecified Escherichia coli [E. coli] as the cause of diseases classified elsewhere; L97.529 Non-pressure chronic ulcer of other part of left foot with unspecified severity; N18.9 Chronic kidney disease, unspecified; Y93.89 Activity, other specified; Y92.89 Other specified places as the place of occurrence of the external cause; Y99.8 Other external cause status; Z88.2 Allergy status to sulfonamides; Z71.51 Drug abuse counseling and surveillance of drug abuser
CPT/HCPCS: 12002; 36415; 70450; 71045; 80053; 80305; 80320; 81001; 82272; 82948; 83036; 83605; 83735; 84145; 85025; 85610; 85730; 86885; 86900; 86901; 87040; 87077; 87081; 87088; 87186; 93005; 96365; 96367; 99285; C9113; G0378; J0696; J1815; J2543; J7030; J7042

== ENCOUNTER 2019-11-27 14:36 | Inpatient (IN) | payer MEDICARE, MEDICAID ==
[~2019-11-27] VITALS: Ht 167.6 cm; Wt 90.9 kg
[~2019-11-27 14:36] MED LIST changes: -ALBU18HF2 INH; -AMLO-314 PO; -CBD OIL PO; -INSU100V41 SQ; +LANTUS SQ; -LINA5TAB4 PO; -METF-436 PO; +MULT-1085 PO
--- NOTE | 2019-11-27 14:58 | NUR ---
In at bedside for rectal exam, with ARABELLA Rockwell. Hemocult positive.
[2019-11-27 15:10] LABS: BASOPHILS # (AUTO) 0.1 X10'3 (0-0.2); BASOPHILS % (AUTO) 0.4 % (0-1); EOSINOPHILS # (AUTO) 0.1 X10'3 (0-0.9); EOSINOPHILS % (AUTO) 0.8 % (0-6); HEMATOCRIT 24.1 % (35.0-45.0); HEMOGLOBIN 7.5 g/dl (12.0-16.0); LYMPHOCYTES # (AUTO) 2.4 X10'3 (1.1-4.8); LYMPHOCYTES % (AUTO) 18.8 % (21-51); MEAN CORPUSCULAR HEMOGLOBIN 25.1 PG (27.0-31.0); MEAN CORPUSCULAR HGB CONC 31.2 g/dL (33.0-36.5); MEAN CORPUSCULAR VOLUME 80.4 FL (78-98); MEAN PLATELET VOLUME 8.7 FL (7.4-10.4); PLATELET COUNT 337 X10'3 (140-440); RED CELL DISTRIBUTION WIDTH 23.9 % (11.5-14.5); WHITE BLOOD COUNT 12.6 X10'3 (4.5-11.0)
[2019-11-27] MEDS ORDERED: pantoprazole 40 MG vial IV ONE (15:10)
[2019-11-27 15:21] LABS: ALANINE AMINOTRANSFERASE 28 U/L (12-78); ALBUMIN 2.9 G/DL (3.4-5.0); ALBUMIN/GLOBULIN RATIO 0.7 (1.1-1.5); ALKALINE PHOSPHATASE 107 IU/L (46-116); ANION GAP 12 (8-16); ASPARTATE AMINO TRANSFERASE 19 U/L (10-37); BILIRUBIN,TOTAL 0.1 MG/DL (0.1-1.0); BLOOD UREA NITROGEN 62 MG/DL (7-18); BUN/CREATININE RATIO 44.9 (6.6-38.0); CALCIUM 9.3 MG/DL (8.5-10.1); CHLORIDE 107 MMOL/L (99-107); CREATININE 1.38 MG/DL (0.40-0.90); GLUCOSE 165 MG/DL (70-104); POTASSIUM 5.5 MMOL/L (3.5-5.1); SODIUM 141 MMOL/L (135-145); TOTAL CARBON DIOXIDE 22.3 MMOL/L (24-32); TOTAL PROTEIN 7.2 G/DL (6.4-8.2); eGFR 38 ML/MIN
[2019-11-27 15:29] LABS: LARGE PLATELETS FEW; PLATELET ESTIMATE NORMAL
[2019-11-27 15:30] LABS: ANISOCYTOSIS 3+; ELLIPTOCYTES FEW; HYPOCHROMASIA 1+; MICROCYTOSIS 1+; POIKILOCYTOSIS FEW; POLYCHROMASIA FEW
[2019-11-27] MEDS ORDERED: LISI40TA4 PO (15:33)
[2019-11-27] MEDS ORDERED: DULO30CA52 PO (15:35)
[2019-11-27] MEDS ORDERED: INSU100I29 SQ (15:35)
[2019-11-27] MEDS ORDERED: POTA10TA36 PO (15:35)
[2019-11-27] MEDS ORDERED: ATOR20TA66 PO (15:36)
[2019-11-27] MEDS ORDERED: PANT40TA4 PO (15:36)
[2019-11-27 15:57] LABS: PARTIAL THROMBOPLASTIN TIME 25 SECONDS (22-32)
[2019-11-27] MEDS: normal saline 1000ml 1,000 ML IV SCH (15:59)
[2019-11-27] MEDS ORDERED: potassium CL 10mEq/100ml bag 100 ML IV PRN ×2 (16:00)
[2019-11-27] MEDS ORDERED: morphine 2 MG/ML inj. syringe IV PRN ×2 (16:00)
[2019-11-27] MEDS: nicotine 7mg patch - 24hr TD SCH (16:00)
[2019-11-27] MEDS ORDERED: magnesium 2GM in 50ml NS 50 ML IV PRN (16:00)
[2019-11-27] MEDS ORDERED: ondansetron/PF 4mg/2ml inj IV PRN (16:00)
[2019-11-27] MEDS ORDERED: HYDROcodone/acetaminophen 5mg/325mg tablet PO PRN (16:00)
[2019-11-27] MEDS ORDERED: HYDROcodone/acetaminophen 10/325mg tab PO PRN (16:00)
[2019-11-27] MEDS ORDERED: magnesium 4gm in 100ml NS 100 ML IV PRN (16:00)
[2019-11-27] MEDS ORDERED: magnesium Cl slow-release 64mg tablet PO PRN (16:00)
[2019-11-27] MEDS ORDERED: potassium Cl 20 mEq SR tablet PO PRN ×2 (16:00)
[2019-11-27] MEDS ORDERED: acetaminophen 325mg tablet PO PRN ×2 (16:00)
--- NOTE | 2019-11-27 16:08 | NUR ---
Dr Beltran in at bedside for admission.
[2019-11-27 16:14] VITALS: BP 120/53
[2019-11-27] MEDS ORDERED: glucagon, human recombinant 1mg kit SUBCUT PRN (16:25)
[2019-11-27] MEDS ORDERED: insulin Lispro (HumaLOG) vial - multi-dose SQ SCH (16:25)
[2019-11-27] MEDS ORDERED: dextrose 50%-water 50ml dispensing syringe IV PRN ×2 (16:25)
[2019-11-27] MEDS ORDERED: dextrose ORAL solution 15 GM/59 ML bottle PO PRN ×2 (16:25)
[2019-11-27] MEDS ORDERED: MESSAGE TO PHARMACY PO ONE (16:25)
[2019-11-27 16:27] VITALS: BP 113/41
[2019-11-27 17:01] VITALS: BP 116/45
[2019-11-27 18:02] VITALS: BP 146/45
[2019-11-27 18:18] VITALS: BP 134/44
--- NOTE | 2019-11-27 18:20 | NUR ---
Patient in room MED 316. I have received report from Blanca SHIN and had the opportunity to ask questions and assume patient care.
--- NOTE | 2019-11-27 18:45 | NUR ---
Problems reprioritized. Patient report given, questions answered & plan of care reviewed with ALEIDA Resendiz.
[2019-11-27] MEDS: K and/or MAG REPLACEMENT MC SCH (19:52)
[2019-11-27] MEDS: pantoprazole 40MG/NS 100ML BAG 100 ML IV SCH (19:52)
[2019-11-27] MEDS: docusate sod 100mg capsule PO SCH (19:53)
[2019-11-27] MEDS ORDERED: pantoprazole 40 MG vial IV SCH (20:00)
[2019-11-27] MEDS: gabapentin 300mg capsule PO SCH (20:17)
[2019-11-27] MEDS: insulin glargine (Lantus) pen - multi-dose SQ SCH (21:00)
[2019-11-27] MEDS ORDERED: temazepam 15mg capsule PO PRN (21:00)
[2019-11-27 22:00] VITALS: BP 141/52
[2019-11-28] VITALS (12 sets, daily range): BP systolic 118–150; BP diastolic 43–87
[2019-11-28] MEDS: pantoprazole 40MG/NS 100ML BAG 100 ML IV SCH ×5 (00:25→21:29)
[2019-11-28] MEDS: normal saline 1000ml 1,000 ML IV SCH ×3 (01:59→21:59)
[2019-11-28 02:49] LABS: ALBUMIN 2.6 G/DL (3.4-5.0); ANION GAP 7 (8-16); BLOOD UREA NITROGEN 52 MG/DL (7-18); BUN/CREATININE RATIO 46.4 (6.6-38.0); CALCIUM 8.6 MG/DL (8.5-10.1); CHLORIDE 111 MMOL/L (99-107); CREATININE 1.12 MG/DL (0.40-0.90); GLUCOSE 97 MG/DL (70-104); MAGNESIUM 2.2 MG/DL (1.5-2.4); POTASSIUM 4.1 MMOL/L (3.5-5.1); SODIUM 143 MMOL/L (135-145); TOTAL CARBON DIOXIDE 25.2 MMOL/L (24-32); eGFR 48 ML/MIN
[2019-11-28 05:31] LABS: BASOPHILS # (AUTO) 0.1 X10'3 (0-0.2); BASOPHILS % (AUTO) 0.8 % (0-1); EOSINOPHILS # (AUTO) 0.3 X10'3 (0-0.9); EOSINOPHILS % (AUTO) 3.2 % (0-6); HEMOGLOBIN 7.3 g/dl (12.0-16.0); LYMPHOCYTES # (AUTO) 2.9 X10'3 (1.1-4.8); MEAN CORPUSCULAR HEMOGLOBIN 25.2 PG (27.0-31.0); MEAN CORPUSCULAR HGB CONC 31.8 g/dL (33.0-36.5); MEAN CORPUSCULAR VOLUME 79.5 FL (78-98); MEAN PLATELET VOLUME 8.3 FL (7.4-10.4); MONOCYTES # (AUTO) 0.9 X10'3 (0-0.9); NEUTROPHILS # (AUTO) 3.9 X10'3 (1.8-7.7); PLATELET COUNT 305 X10'3 (140-440); RED BLOOD COUNT 2.89 X10'6 (4.20-5.60)
--- NOTE | 2019-11-28 06:09 | NUR ---
Problems reprioritized. Patient report given, questions answered & plan of care reviewed with Yoana SHIN.
[2019-11-28 07:01] LABS: PLATELET ESTIMATE NORMAL
[2019-11-28 07:02] LABS: ANISOCYTOSIS 3+; MICROCYTOSIS 1+
--- NOTE | 2019-11-28 07:11 | NUR ---
Patient in room MED 316. I have received report from Astrid SHIN and had the opportunity to ask questions and assume patient care.
[2019-11-28] MEDS: nicotine 7mg patch - 24hr TD SCH (08:00)
[2019-11-28] MEDS: docusate sod 100mg capsule PO SCH ×2 (08:00→19:43)
[2019-11-28] MEDS: K and/or MAG REPLACEMENT MC SCH ×2 (08:00→20:00)
[2019-11-28] MEDS ORDERED: MIDAZolam 5mg/5ml vial ONE (10:29)
[2019-11-28] MEDS ORDERED: fentaNYL/PF 50MCG/1 ML 2ML syringe ONE (10:29)
[2019-11-28] MEDS ORDERED: LIDOcaine Viscous 15ml cup ONE (10:29)
[2019-11-28] MEDS ORDERED: glucagon, human recombinant 1mg kit ONE (11:23)
--- NOTE | 2019-11-28 11:32 | NUR ---
DM consult: Pt with A1c 8.8% recently admitted and seen by ANTHONY 11/04 for written and verbal DM education. Protein education as well as RD contact information also provided at that time. No further education warranted at this time. Will continue to follow. Addendum: 11/28/19 at [address] Amended: Links added.
[2019-11-28] MEDS: atorvastatin 20mg tablet PO SCH (13:47)
[2019-11-28] MEDS: lisinopril 20mg tablet PO SCH (13:48)
[2019-11-28] MEDS: gabapentin 300mg capsule PO SCH ×3 (13:48→19:43)
--- NOTE | 2019-11-28 16:02 | NUR ---
received new order from dr. mistry: give 2nd unit blood now
--- NOTE | 2019-11-28 18:09 | NUR ---
Blood Transfusion: ordered to give second unit by Dr. Beltran.
--- NOTE | 2019-11-28 19:11 | NUR ---
Patient in room MED 316. I have received report from Yoana SHIN and had the opportunity to ask questions and assume patient care.
[2019-11-28] MEDS: insulin glargine (Lantus) pen - multi-dose SQ SCH (21:00)
[2019-11-29 02:00] VITALS: BP 144/47
[2019-11-29] MEDS: pantoprazole 40MG/NS 100ML BAG 100 ML IV SCH ×2 (04:05→06:00)
[2019-11-29 05:06] LABS: BASOPHILS # (AUTO) 0.1 X10'3 (0-0.2); EOSINOPHILS # (AUTO) 0.3 X10'3 (0-0.9); HEMATOCRIT 30.4 % (35.0-45.0); HEMOGLOBIN 9.8 g/dl (12.0-16.0); LYMPHOCYTES # (AUTO) 2.4 X10'3 (1.1-4.8); LYMPHOCYTES % (AUTO) 21.7 % (21-51); MEAN CORPUSCULAR HEMOGLOBIN 26.7 PG (27.0-31.0); MEAN CORPUSCULAR HGB CONC 32.4 g/dL (33.0-36.5); MEAN CORPUSCULAR VOLUME 82.4 FL (78-98); MEAN PLATELET VOLUME 8.8 FL (7.4-10.4); MONOCYTES # (AUTO) 0.9 X10'3 (0-0.9); NEUTROPHILS # (AUTO) 7.3 X10'3 (1.8-7.7); NEUTROPHILS % (AUTO) 66.3 % (42-75); PLATELET COUNT 337 X10'3 (140-440); RED BLOOD COUNT 3.69 X10'6 (4.20-5.60); RED CELL DISTRIBUTION WIDTH 20.9 % (11.5-14.5)
[2019-11-29 05:38] LABS: ALBUMIN 2.7 G/DL (3.4-5.0); ANION GAP 11 (8-16); BLOOD UREA NITROGEN 29 MG/DL (7-18); BUN/CREATININE RATIO 29.3 (6.6-38.0); CALCIUM 8.7 MG/DL (8.5-10.1); CHLORIDE 110 MMOL/L (99-107); CREATININE 0.99 MG/DL (0.40-0.90); GLUCOSE 195 MG/DL (70-104); POTASSIUM 4.7 MMOL/L (3.5-5.1); SODIUM 143 MMOL/L (135-145); TOTAL CARBON DIOXIDE 22.4 MMOL/L (24-32); eGFR 56 ML/MIN
[2019-11-29 06:00] VITALS: BP 169/71
--- NOTE | 2019-11-29 06:36 | NUR ---
Problems reprioritized. Patient report given, questions answered & plan of care reviewed with Briseida SHIN.
--- NOTE | 2019-11-29 06:39 | NUR ---
Patient in room MED 316. I have received report from sylvester pacheco and had the opportunity to ask questions and assume patient care.
[2019-11-29] MEDS: gabapentin 300mg capsule PO SCH ×2 (08:04→12:28)
[2019-11-29] MEDS: docusate sod 100mg capsule PO SCH (08:04)
[2019-11-29] MEDS: atorvastatin 20mg tablet PO SCH (08:05)
[2019-11-29] MEDS: lisinopril 20mg tablet PO SCH (08:05)
[2019-11-29] MEDS: nicotine 7mg patch - 24hr TD SCH (08:12)
[2019-11-29] MEDS: normal saline 1000ml 1,000 ML IV SCH (08:16)
[2019-11-29] MEDS: K and/or MAG REPLACEMENT MC SCH (08:17)
[2019-11-29] MEDS ORDERED: PANT40TA4 PO (10:48)
[2019-11-29] MEDS ORDERED: NICO-630 TD (10:48)
[2019-11-29] MEDS ORDERED: FURO40TA4 PO (10:48)
[2019-11-29 11:00] VITALS: BP 174/64
--- NOTE | 2019-11-29 12:48 | NUR ---
PAGED CASE MANAGEMENT Pt needs resumption of home health (with [facility]) when she gets discharged home today. Can you please assist? Fax number [facility] is [phone]
--- NOTE | 2019-11-29 13:00 | NUR ---
Reviewed all discharge instructions,including prescription phoned into [facility] on [address] for nicotine patch case management contacted home health to resume care photos taken of both leg ulcers,sl dc'd from right hand,site clear,pt dc'd via wheelchair with all belongings
[2019-12-01 13:13] LABS: OCCULT BLOOD STOOL POSITIVE (Neg)
--- NOTE | 2019-12-07 10:05 | NUR ---
Case management DC follow up: LM/VM, questions, concerns
== END 2019-11-29 13:00 | disposition home health service (06) | DRG 377 ==
LOC: ER 14:37 → ED HOLD 15:59 → MED 3N 17:39
PROVIDERS: ADMIT Internal Medicine; ATTEND Internal Medicine
PROC: 30233N1 Transfusion of Nonautologous Red Blood Cells into Peripheral Vein, Percutaneous Approach (ICD-10-PCS; 2019-11-27)
PROC: 0W3P8ZZ Control Bleeding in Gastrointestinal Tract, Via Natural or Artificial Opening Endoscopic (ICD-10-PCS; principal; 2019-11-28)
DX: K31.811 Angiodysplasia of stomach and duodenum with bleeding (principal); N17.0 Acute kidney failure with tubular necrosis; D50.9 Iron deficiency anemia, unspecified; E11.51 Type 2 diabetes mellitus with diabetic peripheral angiopathy without gangrene; E11.621 Type 2 diabetes mellitus with foot ulcer; F17.210 Nicotine dependence, cigarettes, uncomplicated; S81.802A Unspecified open wound, left lower leg, initial encounter; X58.XXXA Exposure to other specified factors, initial encounter; I10 Essential (primary) hypertension; I25.10 Atherosclerotic heart disease of native coronary artery without angina pectoris; L97.509 Non-pressure chronic ulcer of other part of unspecified foot with unspecified severity; Z79.01 Long term (current) use of anticoagulants; Z79.02 Long term (current) use of antithrombotics/antiplatelets; Z88.2 Allergy status to sulfonamides; Y93.89 Activity, other specified; Y92.89 Other specified places as the place of occurrence of the external cause; Y99.8 Other external cause status; Z71.6 Tobacco abuse counseling
CPT/HCPCS: 36415; 36430; 43227; 43235; 43244; 80048; 80053; 82272; 82948; 83735; 85025; 85610; 85730; 86885; 86900; 86901; 86920; 87081; 93005; 97161; 97530; 97535; 99152; 99153; 99285; A4620; C9113; G0378; J1610; J1815; J2250; J3010; J7030; J7040; P9016